=== PATIENT | female | born 1985 | race African-American/Black ===

== ENCOUNTER 2017-07-08 12:17 | Emergency (ER) | payer BC, OTHER ==
[2017-07-08] MEDS: IPRATROPIUM (NEB) 0.5 MG/2.5 ML AMP HHN (15:18)
[2017-07-08] MEDS: ALBUTEROL 0.083% (NEB) 2.5 MG/3 ML AMP HHN (15:18)
== END 2017-07-08 16:25 | disposition home or self-care (01) ==
LOC: FTE 12:17
DX: J06.9 Acute upper respiratory infection, unspecified (principal)
CPT/HCPCS: 94664; 99284-25